=== PATIENT | female | born 1975 | race Two or more races ===

== ENCOUNTER 2017-12-24 04:56 | Day surgery (SDC) | payer BC ==
[2017-12-18 11:12] VITALS: BMI 35.5
[2017-12-24] MEDS ORDERED: ceFAZolin SODIUM 1 GM VIAL IVPB ONE (15:21)
[2017-12-24] MEDS ORDERED: KETOROLAC TROMETHAMINE 30 MG/1 ML VIAL ONE (15:55)
[2017-12-24] MEDS ORDERED: IBUPROFEN 800 MG/8 ML IJ IVPB PRN (16:10)
[2017-12-24] MEDS ORDERED: IBUPROFEN 600 MG TABLET (FP) PO PRN (16:10)
[2017-12-24] MEDS ORDERED: oxyCODONE HCL 5 MG TABLET PO PRN (16:10)
[2017-12-24] MEDS ORDERED: ONDANSETRON 4 MG/2 ML VIAL IVPUSH PRN (16:10)
[2017-12-24] MEDS ORDERED: ELECTROLYTE-148 SOLN 1,000 ML IV SCH (16:15)
[2017-12-24] MEDS ORDERED: LACTATED RINGERS SOLUTION 1,000 ML IV SCH (16:30)
[2017-12-24 17:52] VITALS: TEMP 98.5
[2017-12-24] MEDS ORDERED: IBUPROFEN 400 MG TABLET (FP) PO ONE ×2 (18:20→18:23)
[2017-12-24 19:24] VITALS: BP 130/80; PULSE 74
--- NOTE | 2017-12-24 22:47 | OP ---
DATE OF OPERATION: 12/24/2017 PREOPERATIVE DIAGNOSIS: Menometrorrhagia. POSTOPERATIVE DIAGNOSIS: Menometrorrhagia. PROCEDURE: Hysteroscopic endometrial hydroablation. SURGEON: Eugene Tena MD ANESTHESIA: General. ANESTHESIOLOGIST: Tommie Carrera MD ESTIMATED BLOOD LOSS: Minimal. OPERATION: The patient was taken to the operating room and adequate general anesthesia induced. In the lithotomy position, examination under anesthesia revealed external genitalia to be normal. Vagina was normal. Cervix clear; no gross lesion. Uterus was prominent, anteverted. Adnexa: No masses were palpable. Then, with the weighted speculum in the vagina, the anterior lip of the cervix was grasped with a single-toothed tenaculum. Uterine cavity was sounded to 9 cm. Then, the hysteroscope was introduced. Visualization of endocervical canal appeared to be normal. Endometrium was prominent, irregular. No other abnormality was noted. Both cornual regions were identified. Then, endometrial hydroablation started and completed without any incident. The patient tolerated the procedure well; left the OR in good condition. EUGENE TENA M.D. [id number]
== END 2017-12-24 19:00 | disposition home or self-care (01) ==
LOC: JASU-SURG 04:56
PROVIDERS: ATTEND Obstetrics & Gynecology
PROC: 0U5B8ZZ Destruction of Endometrium, Via Natural or Artificial Opening Endoscopic (ICD-10-PCS; principal; 2017-12-24 14:30)
DX: N92.1 Excessive and frequent menstruation with irregular cycle (principal)
CPT/HCPCS: 84703; 94760

== ENCOUNTER 2018-12-16 05:15 | Day surgery (SDC) | payer BC ==
[2018-12-10 14:56] VITALS: BMI 35.2
[2018-12-16] MEDS ORDERED: PROPOFOL 20 ML ONE ×2 (11:48)
[2018-12-16] MEDS ORDERED: LIDOCAINE HCL/PF 2% SDV 5ML VIAL ONE (11:48)
[2018-12-16] MEDS ORDERED: MIDAZOLAM HCL 2 MG/2 ML SINGLE DOSE VIAL ONE (11:48)
[2018-12-16] MEDS ORDERED: IBUPROFEN 800 MG/8 ML IJ IVPB ONE (11:51)
--- NOTE | 2018-12-16 11:55 | HP ---
History & Physical Update - Physical Physical: No Change - Assessment Assessment: No Change - Plan Plan: No Change (H&P reviwed , no cahnges , for hydroablation)
[2018-12-16] MEDS ORDERED: IBUPROFEN 600 MG TABLET (FP) PO PRN (11:59)
[2018-12-16] MEDS ORDERED: oxyCODONE HCL 5 MG TABLET PO PRN (11:59)
[2018-12-16] MEDS ORDERED: ONDANSETRON 4 MG/2 ML VIAL IVPUSH PRN (11:59)
[2018-12-16] MEDS ORDERED: IBUPROFEN 800 MG/8 ML IJ IVPB PRN (11:59)
[2018-12-16] MEDS ORDERED: ELECTROLYTE-148 SOLN 1,000 ML IV SCH (12:00)
[2018-12-16] MEDS ORDERED: ceFAZolin SODIUM 1 GM VIAL ONE (12:25)
[2018-12-16] MEDS ORDERED: ceFAZolin SODIUM 1 GM VIAL IVPB ONE (12:26)
[2018-12-16] MEDS ORDERED: LACTATED RINGERS SOLUTION 1,000 ML IV SCH (13:00)
[2018-12-16] MEDS ORDERED: oxyCODONE HCL 5 MG TABLET ONE (14:58)
[2018-12-16] MEDS ORDERED: oxyCODONE HCL 5 MG TABLET PO ONE (15:05)
[2018-12-16 15:19] VITALS: BP 122/80; PULSE 71; TEMP 97.3
--- NOTE | 2018-12-16 21:47 | OP ---
Operative Note - Note: Operative Date: 12/16/18 Pre-Operative Diagnosis: menometrorrhagia , fibroid uterus Operation: hysteroscopy ,D&C , EM hydroablation Findings: submucos myoma, thicken EM, fibroid uterus Surgeon: Eugene Greenfield Anesthesiologist/FUEL OIL TRUCK DRIVER: Bharti Ramirez Anesthesia: General Specimens Removed: EMC Estimated Blood Loss (mls): 25 Drains & Tubes with Location: none Blood Volume Replaced (mls): 0 Operative Report Dictated: Yes
--- NOTE | 2018-12-17 06:40 | OP ---
DATE OF OPERATION: 12/16/2018 PREOPERATIVE DIAGNOSIS: Menometrorrhagia, fibroid uterus. POSTOPERATIVE DIAGNOSIS: Menometrorrhagia, fibroid uterus, submucous myomas. PROCEDURE: Dilatation and curettage, hysteroscopy, and endometrial ablation. SURGEON: Eugene Greenfield MD ANESTHESIA: General. ANESTHESIOLOGIST: Bharti Ramirez MD ESTIMATED BLOOD LOSS: 25 mL. DESCRIPTION OF PROCEDURE: The patient was taken to the operating room, and under adequate general anesthesia in dorsal lithotomy position, examination under anesthesia revealed external genitalia to be normal. Vagina was normal. Cervix was clean, no gross lesion. Uterus was enlarged with fibroid. Adnexa, no masses were palpable. Then, with a weighted speculum in the vagina, anterior lip of the cervix was grasped with a single-tooth tenaculum. Uterine cavity was sounded to 11 cm. Then, cervix was slightly dilated. Then, endometrial curetting was done. Then, hysteroscope was introduced. Visualization of the endocervical canal appeared to be normal. There were 2 small submucous myomas seen at the lower part of the uterus. Endometrium appeared to be irregular, and some adhesions from the previous endometrial ablation were seen. No other abnormality was noted. Both cornua region was identified. Then, endometrial hydro ablation was done and completed without any incident. Patient tolerated the procedure well, left the OR in good condition. No fluid deficit. EUGENE GREENFIELD M.D. /[id number]
--- NOTE | 2018-12-20 18:14 | PATH ---
Surgical Pathology Report Patient Name: JULIANA PARADA [facility]. Rec. #: [id number] /Age/Gender: 1975 (Age: 43) / F Account: [id number] Location: [facility] Taken: 12/17/2018 Received: 12/17/2018 Reported: 12/20/2018 Physicians: Eugene Greenfield M.D. Specimen(s) Received ENDOMETRIAL CURETTINGS Clinical History Menorrhagia, fibroid uterus Final Diagnosis ENDOMETRIAL CURETTINGS, DILATION AND CURETTAGE: FRAGMENTS OF ENDOMETRIAL POLYP WITH PATCHY EXTENSIVE SQUAMOUS METAPLASIA AND SECRETORY ENDOMETRIUM. NO FIBROMUSCULAR TISSUE IDENTIFIED. Electronically Signed Flor Gutierrez M.D. Gross Description Received in formalin labeled "endometrial curettings," is a 3.2 x 2.0 x 0.3 cm aggregate of méndez-brown soft tissue fragments. The formalin is filtered and the specimen is entirely submitted in 2 cassettes. DL/12/17/2018 saudi/12/17/2018
== END 2018-12-16 15:37 | disposition home or self-care (01) ==
LOC: JASU-SURG 05:15
PROVIDERS: ATTEND Obstetrics & Gynecology
PROC: 0UB98ZZ Excision of Uterus, Via Natural or Artificial Opening Endoscopic (ICD-10-PCS; 2018-12-16)
PROC: 0U5B8ZZ Destruction of Endometrium, Via Natural or Artificial Opening Endoscopic (ICD-10-PCS; principal; 2018-12-16 14:00)
PROC: 0UDB7ZX Extraction of Endometrium, Via Natural or Artificial Opening, Diagnostic (ICD-10-PCS; 2018-12-16 14:00)
DX: N92.1 Excessive and frequent menstruation with irregular cycle (principal); D25.0 Submucous leiomyoma of uterus; E11.9 Type 2 diabetes mellitus without complications; Z79.84 Long term (current) use of oral hypoglycemic drugs; D64.9 Anemia, unspecified
CPT/HCPCS: 82962; 84703; 88305-TC; 94760

== ENCOUNTER 2019-06-14 11:53 | Emergency (ER) | payer BC ==
[2019-06-14 12:24] VITALS: BMI 34.4
[2019-06-14] MEDS ORDERED: ACETAMINOPHEN 1000 MG/100 ML VIAL (NON FORMULARY) IVPB ONE (12:27)
--- NOTE | 2019-06-14 12:27 | PDOC ---
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 The patient has had a headache, feeling warm, body ache and decreased appetite since yesterday and her was sick with the flu. When she woke up she felt worse and took 2x 500mg of tylenol at 0600. At the meeting she felt warm and dizzy and some slight nausea and she lost consciousnessness for what she believes was a 1-2minutes. In the meeting was a registered nurse who found her to be hypotensive to systolic of 80s but was a blood glucose of 100s. No shaking or biting the tongue or urinating on self. However when EMS arrived they could not find a strong pulse and did chest compressions on her and started fluids. She improved and aroused. The patient denies chest pain, shortness of breath, leg swelling, recent travel , ocp use, prior dvt or pe. She denies any family history of sudden , or early heart attacks. PSHXL tubal ligation (2009), myomectomy, kidney lithotripsy PCP: Mark BALL GENERAL/CONSTITUTIONAL: + fever or chills. No weakness. HEAD, EYES, EARS, NOSE AND THROAT: + sore throat. CARDIOVASCULAR: No chest pain or shortness of breath RESPIRATORY: No cough, wheezing, or hemoptysis. GASTROINTESTINAL: + nausea, No vomiting, diarrhea or constipation. GENITOURINARY: No dysuria, frequency, or change in urination. MUSCULOSKELETAL: No joint or muscle swelling or pain. No neck or back pain. SKIN: No rash NEUROLOGIC: + headache, vertigo, loss of consciousness, or change in strength/ sensation. ENDOCRINE: No increased thirst. No abnormal weight change HEMATOLOGIC/LYMPHATIC: No anemia, easy bleeding, or history of blood clots. ALLERGIC/IMMUNOLOGIC: No hives or skin allergy. PE GENERAL: Awake, alert, and fully oriented, tired appearing HEAD: No signs of trauma, normocephalic, atraumatic EYES: EOMI, sclera anicteric, conjunctiva clear ENT: oropharynx clear without exudates. Moist mucosa NECK: Normal ROM, supple LUNGS: No distress, speaks full sentences, clear to auscultation bilaterally HEART: Regular rate and rhythm, normal S1 and S2, no murmurs, rubs or gallops, peripheral pulses normal and equal bilaterally. ABDOMEN: Soft, nontender. No guarding, no rebound. No masses EXTREMITIES : Normal inspection, Normal range of motion, no edema. No clubbing or cyanosis. NEUROLOGICAL: Cranial nerves II through XII grossly intact. Normal speech, no focal sensorimotor deficits SKIN: Warm, Dry, normal turgor, no rashes or lesions noted MDM DDX including but not limited to: arrythmia vvasovagal v acs v pe r/o influenza ED Course: Patient does not meet any PERC critera she is tachycardiac however with low grade oral temp likely has true fever on rectal temp EKG: nsr at 104bpm, no interval abnormalities, narrow QRS, ST and T wave segments and morphology normal. CXR: no acute pathology labs wnl pending Laura Suarez PGY2 Emergency Medicine 06/14/19 14:57 Past History - Past Medical History Allergies/Adverse Reactions: Allergies Allergy/AdvReac Type Severity Reaction Status Date / Time peanut Allergy Severe Rash Verified 06/14/19 12:24 Home Medications: Ambulatory Orders Levothyroxine [Synthroid -] 50 mcg PO DAILY 12/18/17 Metformin HCl [Glucophage] 500 mg PO BID 12/10/18 Meloxicam 15 mg PO PRN 06/14/19 Oseltamivir Phosphate [Tamiflu -] 75 mg PO DAILY #9 capsule 06/14/19 Anemia: Yes Asthma: Yes Cancer: No Cardiac Disorders: No CVA: No COPD: No CHF: No Dementia: No Diabetes: Yes GI Disorders: No Disorders: No HTN: No Hypercholesterolemia: No Liver Disease: No Seizures: No Thyroid Disease: Yes - Surgical History Abdominal Surgery: No Appendectomy: No Cardiac Surgery: No Cholecystectomy: Yes Lung Surgery: No Neurologic Surgery: No Orthopedic Surgery: No - Psycho Social/Smoking Cessation Hx Smoking Status: No Smoking History: Never smoked Have you smoked in the past 12 months: No Number of Cigarettes Smoked Daily: 0 Hx Alcohol Use: No Drug/Substance Use Hx: No Substance Use Type: None Hx Substance Use Treatment: No *Physical Exam - Vital Signs Last Vital Signs Temp Pulse Resp BP Pulse Ox 99.5 F 104 H 20 121/73 100 06/14/19 12:14 06/14/19 12:14 06/14/19 12:14 06/14/19 12:14 06/14/19 12:14 Vital Signs - Vital Signs #1 Time: 15:30 Blood Pressure: 119/81 Blood Pressure Position: Sitting Pulse Rate: 97 Temperature: 99.3 F Temperature Source: Oral O2 Sat by Pulse Oximetry (%): 100 ED Treatment Course - LABORATORY CBC & Chemistry Diagram: 06/14/19 12:45 06/14/19 12:45 - RADIOLOGY Radiology Studies Ordered: Category Date Time Status CHEST PA & LAT [RAD] Stat Radiology 06/14/19 12:20 Ordered CHEST X-RAY PORTABLE* [RAD] Stat Radiology 06/14/19 12:22 Ordered Discharge - Discharge Information Problems reviewed: Yes Clinical Impression/Diagnosis: Influenza A Condition: Fair Disposition: HOME - Admission No - Additional Discharge Information Prescriptions: Oseltamivir Phosphate [Tamiflu -] 75 mg PO DAILY #9 capsule - Follow up/Referral Referrals: Amanda Beltran MD [Primary Care Provider] - - Patient Discharge Instructions Patient Printed Discharge Instructions: DI for Influenza -- Adult Additional Instructions: You were seen in the ED for complaints of fatigue, bodyaches and passing out In the ED you were evaluated with labwork and imaging Your results were positive for the flu There does not appear to be an acute need for immediate hospitalization. You are advised to follow up with your Primary Care Physician within 1 week. You were given a prescription for Tamiflu and you should take this medication twice a day for 5 days. Return to the ED immediately if you experience worsening fever, rash, nausea, vomiting, fatigue, chest pain, shortness of breath or any other concerning symptoms. - Post Discharge Activity Work/Back to School Note: Back to Work
[2019-06-14] MEDS ORDERED: SODIUM CHLORIDE 1,000 ML IV SCH (12:30)
[2019-06-14] MEDS ORDERED: ACETAMINOPHEN INJECTION 100 ML IVPB ONE (12:37)
--- NOTE | 2019-06-14 12:56 | EKG ---
Test Reason : Blood Pressure : / mmHG Vent. Rate : 104 BPM Atrial Rate : 104 BPM P-R Int : 146 ms QRS Dur : 074 ms QT Int : 328 ms P-R-T Axes : 019 015 022 degrees QTc Int : 431 ms SINUS TACHYCARDIA CANNOT RULE OUT ANTERIOR INFARCT , AGE UNDETERMINED ABNORMAL ECG WHEN COMPARED WITH ECG OF 10-DEC-2018 14:34, NO SIGNIFICANT CHANGE WAS FOUND Confirmed by MD Jang Daniel ([id number]) on 06/14/2019 12:56:07 PM Referred By: Confirmed By:Ozzie Jang MD
[2019-06-14 13:49] LABS: BASO % 0.5 % (0-2.0); EOS % 1.1 % (0-4.5); HEMATOCRIT 35.9 % (32.4-45.2); HEMOGLOBIN 11.6 GM/dL (10.7-15.3); LYMPH % 7.9 % (8-40); MCH 26.6 pg (25.7-33.7); MCHC 32.5 g/dl (32.0-36.0); MEAN CELL VOLUME 81.9 fl (80-96); MONO % 10.6 % (3.8-10.2); NEUT % 79.9 % (42.8-82.8); PLATELET COUNT 247 K/MM3 (134-434); RBC 4.38 M/mm3 (3.60-5.2); RDW 15.2 % (11.6-15.6); WHITE BLOOD COUNT 9.8 K/mm3 (4.0-10.0)
[2019-06-14] MEDS ORDERED: OSELTAMIVIR PHOSPHATE 75 MG CAPSULE PO ONE (14:10)
[2019-06-14 14:15] LABS: INR 1.05 (0.83-1.09); PROTHROMBIN TIME (PATIENT) 12.4 SEC (9.7-13.0)
[2019-06-14 14:18] LABS: ACTIVATED PTT 29.7 SECONDS (25.2-36.5)
[2019-06-14 14:29] LABS: EPI CELLS 6.7 /HPF (0-5/HPF); HYALINE CASTS 5 /lpf (0-8); URINE APPEARANCE CLEAR; URINE BACTERIA 93.9 /hpf (NEGATIVE); URINE BILIRUBIN NEGATIVE (NEGATIVE); URINE COLOR YELLOW; URINE GLUCOSE (UA) NEGATIVE (NEGATIVE); URINE KETONE NEGATIVE (NEGATIVE); URINE LEUK ESTERASE NEGATIVE (NEGATIVE); URINE NITRITE NEGATIVE (NEGATIVE); URINE PROTEIN 1+ (NEGATIVE); URINE RBC 4 /hpf (0-4); URINE UROBILINOGEN 0.2 mg/dL (0.2-1.0); URINE WBC 3 /hpf (0-5)
[2019-06-14 14:31] LABS: ALBUMIN 3.4 g/dl (3.4-5.0); ALK PHOS 89 U/L (45-117); ANION GAP 9 MMOL/L (8-16); BILIRUBIN,TOTAL 0.6 mg/dL (0.2-1); BLOOD UREA NITROGEN 8.2 mg/dL (7-18); CALCIUM 8.1 mg/dL (8.5-10.1); CHLORIDE 103 mmol/L (98-107); CO2 24 mmol/L (21-32); CREATININE 0.6 mg/dL (0.55-1.3); GLUCOSE,RANDOM 120 mg/dL (74-106); POTASSIUM 3.6 mmol/L (3.5-5.1); SGOT/AST 55 U/L (15-37); SGPT/ALT 50 U/L (13-61); SODIUM 135 mmol/L (136-145); TOT PROT 7.2 g/dl (6.4-8.2)
[2019-06-14] MEDS ORDERED: OSELTAMIVIR PHOSPHATE 75 MG CAPSULE ONE (14:40)
--- NOTE | 2019-06-14 15:28 | PDOC ---
Documentation entered by Ozzie Monroe SCRIBE, acting as scribe for Tunde Aquino MD. Tunde Aquino MD: This documentation has been prepared by the Fer howard Daniel, SCRIBE, under my direction and personally reviewed by me in its entirety. I confirm that the documentation accurately reflects all work, treatment, procedures, and medical decision making performed by me. Attending Attestation - Resident Resident Name: Laura Suarez - ED Attending Attestation I have performed the following: I have examined & evaluated the patient, The case was reviewed & discussed with the resident, I agree w/resident's findings & plan, Exceptions are as noted - HPI HPI: 06/14/19 13:23 The patient is a 44 year old female with a past medical history of hypothyroidism, diabetes, and asthma here today for evaluation of a syncopal episode. The patient reports that she has had a subjective fever, and general body aches since yesterday. She reports that she felt dizzy and nauseous just prior to passing out and reports being out for approximately 1-2 minutes. Per EMS, the patient was hypotensive upon their arrival. They were unable to palpate a strong pulse and initiated chest compressions, but this was stopped once pt regained consciousness. She notes that her has the flu. Pt denies chest pain, shortness of breath. Denies vomiting, diarrhea, abdominal pain. Allergies: peanut Surgical history: tubal ligation, myomectomy, kidney lithotripsy PCP: Amanda Beltran - Physicial Exam PE: 06/14/19 13:23 GENERAL: Awake, alert, and fully oriented, in no acute distress. HEAD: No signs of trauma EYES: PERRLA, EOMI, sclera anicteric, conjunctiva clear ENT: Auricles normal inspection, hearing grossly normal, nares patent, oropharynx clear without exudates. Moist mucosa NECK: Nontender, no stepoffs, Normal ROM, supple, no lymphadenopathy, JVD, or masses LUNGS: Breath sounds equal, clear to auscultation bilaterally. No wheezes, and no crackles HEART: Regular rate and rhythm, normal S1 and S2, no murmurs, rubs or gallops ABDOMEN: Soft, nontender, normoactive bowel sounds. No guarding, no rebound. No masses EXTREMITIES: Normal range of motion, no edema. No clubbing or cyanosis. No cords, erythema, or tenderness NEUROLOGICAL: Cranial nerves II through XII intact. 5/5 strength and sensation in all extremities, Normal speech, normal gait, normal cerebellar function SKIN: Warm, Dry, normal turgor, no rashes or lesions noted. - Medical Decision Making 06/14/19 15:30 44 F with syncopal episode. LIkely vasovagal in setting of viral illness. Suspect influenza. - Labs - CT head - Flu swab - IVF 06/14/19 15:31 Pt flu A positive Labs otherwise wnl CT head unremarkable Pt reassessed - states she feels much better after fluids and tylenol. Pt is well appearing, with normal vitals. Clinically stable for DC at this time. I discussed the physical exam findings, ancillary test results and final diagnoses with the patient. I answered all of the patient's questions. The patient was satisfied with the care received and felt comfortable with the discharge plan and treatment plan. The patient agrees to follow up with the primary care physician within 24-72 hours.
[2019-06-14 15:30] VITALS: BP 119/81; PULSE 97; TEMP 99.3
== END 2019-06-14 15:45 | disposition home or self-care (01) ==
LOC: JER 11:53 → SUPCPDRO 11:53 → JER 15:45
PROC: 3E033NZ Introduction of Analgesics, Hypnotics, Sedatives into Peripheral Vein, Percutaneous Approach (ICD-10-PCS; principal; 2019-06-14)
DX: J09.X2 Influenza due to identified novel influenza A virus with other respiratory manifestations (principal); E03.9 Hypothyroidism, unspecified; E11.9 Type 2 diabetes mellitus without complications; Z79.84 Long term (current) use of oral hypoglycemic drugs; J45.909 Unspecified asthma, uncomplicated; R07.0 Pain in throat; Z91.010 Allergy to peanuts; Z98.51 Tubal ligation status
CPT/HCPCS: 36415; 70450-TC; 71046-TC-FY; 80053; 81003; 82550; 84443; 84484; 84702; 85025; 85610; 85730; 87040; 87086; 87804; 93005; 93010; 99284-25; J0131; J7030

== ENCOUNTER 2021-05-29 18:25 | Emergency (ER) | payer BC, OTHER ==
[2021-05-29 19:09] VITALS: BP 116/66; PULSE 83; TEMP 97.8; BMI 31.3
== END 2021-05-29 22:35 | disposition home or self-care (01) ==
LOC: JER 18:25
DX: J06.9 Acute upper respiratory infection, unspecified (principal)
CPT/HCPCS: 87804; 99283-25; C9803; U0003; U0005

== ENCOUNTER 2021-11-14 04:21 | Day surgery (SDC) | payer OTHER ==
[2021-11-11 17:17] VITALS: BMI 34.4
[2021-11-14] MEDS ORDERED: MIDAZOLAM HCL 2 MG/2 ML SINGLE DOSE VIAL ONE ×2 (13:47)
[2021-11-14] MEDS ORDERED: ceFAZolin SODIUM 1 GM VIAL IVPB ONE (14:09)
[2021-11-14] MEDS ORDERED: ceFAZolin SODIUM 1 GM VIAL ONE (14:16)
[2021-11-14] MEDS ORDERED: KETOROLAC TROMETHAMINE 30 MG/1 ML VIAL ONE (14:16)
[2021-11-14] MEDS ORDERED: DEXAMETHASONE SOD PHOSPHATE 4 MG/1 ML VIAL ONE (14:16)
[2021-11-14] MEDS ORDERED: IBUPROFEN 800 MG/8 ML IJ IVPB PRN (14:54)
[2021-11-14] MEDS ORDERED: IBUPROFEN 600 MG TABLET (FP) PO PRN (14:54)
[2021-11-14] MEDS ORDERED: oxyCODONE HCL 5 MG TABLET PO PRN ×2 (14:54→14:55)
[2021-11-14] MEDS ORDERED: ONDANSETRON 4 MG/2 ML VIAL IVPUSH PRN ×2 (14:54→14:55)
[2021-11-14] MEDS ORDERED: ACETAMINOPHEN 1000 MG/100 ML BAG IVPB ONE (14:55)
[2021-11-14] MEDS ORDERED: ELECTROLYTE-148 SOLN 1,000 ML IV SCH (15:00)
[2021-11-14] MEDS ORDERED: LACTATED RINGERS SOLUTION 1,000 ML IV SCH (15:00)
[2021-11-14 15:13] VITALS: TEMP 97.9
[2021-11-14] MEDS ORDERED: FENTANYL CITRATE/PF 50 MCG/ML VIAL ONE (15:48)
[2021-11-14 17:02] VITALS: BP 121/80; PULSE 83
== END 2021-11-14 17:55 | disposition home or self-care (01) ==
LOC: JASU-SURG 04:21
PROVIDERS: ATTEND Obstetrics & Gynecology
PROC: 0U5B8ZZ Destruction of Endometrium, Via Natural or Artificial Opening Endoscopic (ICD-10-PCS; principal; 2021-11-14 14:00)
DX: N92.1 Excessive and frequent menstruation with irregular cycle (principal); N80.0 Endometriosis of uterus; E11.9 Type 2 diabetes mellitus without complications; J45.909 Unspecified asthma, uncomplicated
CPT/HCPCS: 82962; 94760

== ENCOUNTER 2024-01-19 04:00 | Inpatient (IN) | payer OTHER ==
[2024-01-14 16:59] VITALS: BMI 34.4
[2024-01-19] MEDS ORDERED: ROPIVACAINE HCL 0.5% 30ML VIAL ONE (10:52)
[2024-01-19] MEDS ORDERED: DEXAMETHASONE SOD PHOSPHATE 10 MG/1 ML VIAL ONE (10:53)
[2024-01-19] MEDS ORDERED: ROCURONIUM BROMIDE 50 MG/5 ML SYRINGE ONE ×2 (11:04→12:11)
[2024-01-19] MEDS ORDERED: MIDAZOLAM HCL 2 MG/2 ML SINGLE DOSE VIAL ONE (11:04)
[2024-01-19] MEDS ORDERED: PROPOFOL 20 ML ONE (11:04)
[2024-01-19] MEDS ORDERED: LIDOCAINE HCL/PF 2% SDV 5ML VIAL ONE (11:05)
[2024-01-19] MEDS ORDERED: DEXAMETHASONE SOD PHOSPHATE 4 MG/1 ML VIAL ONE (11:42)
[2024-01-19] MEDS ORDERED: ceFAZolin SODIUM 1 GM VIAL ONE (11:42)
[2024-01-19] MEDS: ceFAZolin SODIUM 1 GM VIAL IVPB ONE (11:43)
[2024-01-19] MEDS ORDERED: ONDANSETRON 4 MG/2 ML VIAL ONE (12:04)
[2024-01-19] MEDS ORDERED: SUGAMMADEX SODIUM 200 MG/2 ML VIAL ONE (12:28)
[2024-01-19] MEDS ORDERED: KETOROLAC TROMETHAMINE 30 MG/1 ML VIAL ONE (12:33)
[2024-01-19] MEDS ORDERED: IBUPROFEN 800 MG/8 ML IJ IVPB PRN (13:14)
[2024-01-19] MEDS ORDERED: ONDANSETRON 4 MG/2 ML VIAL IVPUSH PRN ×2 (13:14→13:23)
[2024-01-19] MEDS: ACETAMINOPHEN 1000 MG/100 ML BAG IVPB ONE (13:22)
[2024-01-19] MEDS ORDERED: DOCUSATE SODIUM 100 MG CAPSULE (FP) PO PRN (13:25)
[2024-01-19] MEDS ORDERED: ALBUTEROL SO4 HFA INHALER IH PRN (13:26)
[2024-01-19] MEDS ORDERED: LACTATED RINGERS SOLUTION 1,000 ML IV SCH (13:30)
[2024-01-19] MEDS: LABETALOL HCL 5 MG/1 ML (100MG/20 ML VIAL) IVPUSH ONE (14:12)
[2024-01-19] MEDS ORDERED: LABETALOL HCL 5 MG/1 ML (100MG/20 ML VIAL) ONE (14:12)
[2024-01-19] MEDS ORDERED: hydrALAZINE HCL 20 MG/ML VIAL ONE (14:43)
[2024-01-19] MEDS: hydrALAZINE HCL 20 MG/ML VIAL IVPUSH PRN (14:45)
[2024-01-19] MEDS: ELECTROLYTE-148 SOLN 1,000 ML IV SCH (15:45)
[2024-01-19] MEDS: ACETAMINOPHEN 1000 MG/100 ML BAG IVPB PRN (16:44)
[2024-01-19] MEDS: oxyCODONE HCL 5 MG TABLET PO PRN (21:02)
[2024-01-19] MEDS: CEFAZOLIN SODIUM 2 GM in DEXTROSE 5%-WATER 100 ML IVPB SCH (22:38)
[2024-01-19] MEDS: SIMETHICONE 80 MG TAB.CHEW (FP) PO PRN (22:51)
[2024-01-20] MEDS: metFORMIN HCL 500 MG TABLET (FP) PO SCH (06:56)
[2024-01-20] MEDS: LEVOTHYROXINE NA 75 MCG TABLET (FP) PO SCH (06:56)
[2024-01-20 10:23] LABS: BASO % 0.2 % (0-2.0); EOS % 0.3 % (0-4.5); HEMATOCRIT 36.8 % (32.4-45.2); LYMPH % 15.1 % (8-40); MCH 26.2 pg (25.7-33.7); MCHC 32.6 g/dl (32.0-36.0); MEAN CELL VOLUME 80.6 fl (80-96); MEAN PLT VOLUME 7.9 fl (7.5-11.1); MONO % 9.9 % (3.8-10.2); NEUT % 74.5 % (42.8-82.8); PLATELET COUNT 383 10^3/uL (134-434); RBC 4.57 M/mm3 (3.60-5.2); RDW 18.4 % (11.6-15.6); WHITE BLOOD COUNT 16.6 K/mm3 (4.0-10.0)
[2024-01-20 10:42] LABS: POTASSIUM 3.8 mmol/L (3.5-5.1)
[2024-01-20] MEDS: ENOXAPARIN NA (PORCINE) 40 MG/0.4 ML DISP.SYRIN SQ SCH (10:43)
[2024-01-20 10:47] LABS: CREATININE 0.6 mg/dL (0.55-1.3)
[2024-01-20 22:18] VITALS: RESP 18
[2024-01-20] MEDS: LABETALOL HCL 200 MG TABLET (FP) PO SCH (22:21)
[2024-01-21 05:52] VITALS: BP 92/50; PULSE 80; TEMP 98.2
[2024-01-21 10:14] LABS: BASO % 0.4 % (0-2.0); EOS % 1.4 % (0-4.5); HEMATOCRIT 34.9 % (32.4-45.2); HEMOGLOBIN 11.4 GM/dL (10.7-15.3); LYMPH % 19.8 % (8-40); MCH 26.5 pg (25.7-33.7); MCHC 32.6 g/dl (32.0-36.0); MEAN CELL VOLUME 81.3 fl (80-96); MEAN PLT VOLUME 8.4 fl (7.5-11.1); MONO % 9.4 % (3.8-10.2); PLATELET COUNT 358 10^3/uL (134-434); RBC 4.28 M/mm3 (3.60-5.2); RDW 18.3 % (11.6-15.6); WHITE BLOOD COUNT 13.5 K/mm3 (4.0-10.0)
[2024-01-21] MEDS: IBUPROFEN 600 MG TABLET (FP) PO PRN (11:07)
== END 2024-01-21 11:28 | disposition home or self-care (01) | DRG 513 ==
LOC: J2C 04:00 → EDSTATUS 09:00 → J6S 15:57
PROVIDERS: ADMIT Obstetrics & Gynecology; ATTEND Obstetrics & Gynecology
PROC: 0UT70ZZ Resection of Bilateral Fallopian Tubes, Open Approach (ICD-10-PCS; 2024-01-19)
PROC: 0TTB0ZZ Resection of Bladder, Open Approach (ICD-10-PCS; 2024-01-19)
PROC: 0UT20ZZ Resection of Bilateral Ovaries, Open Approach (ICD-10-PCS; 2024-01-19)
PROC: 0UT90ZL Resection of Uterus, Supracervical, Open Approach (ICD-10-PCS; principal; 2024-01-19 11:00)
DX: N92.1 Excessive and frequent menstruation with irregular cycle (principal); E66.9 Obesity, unspecified; Z68.34 Body mass index [BMI] 34.0-34.9, adult; N80.03 Adenomyosis of the uterus; R10.2 Pelvic and perineal pain; N83.209 Unspecified ovarian cyst, unspecified side; E03.9 Hypothyroidism, unspecified; E11.9 Type 2 diabetes mellitus without complications
CPT/HCPCS: 36415; 80048; 81025; 82962; 85025; 86850; 86900; 86901; 88302-TC; 88305-TC; 94010; 94760; J0131; J1100